=== PATIENT | male | born 2000 ===

== ENCOUNTER 2025-05-19 21:27 | Emergency (ER) | payer OTHER ==
[~2025-05-19] VITALS: Ht 177.8 cm; Wt 72.6 kg
== END 2025-05-19 22:15 | disposition home or self-care (01) ==
LOC: ER 21:27
DX: S61.241A Puncture wound with foreign body of left index finger without damage to nail, initial encounter (principal); W26.8XXA Contact with other sharp object(s), not elsewhere classified, initial encounter; W45.8XXA Other foreign body or object entering through skin, initial encounter; Z88.0 Allergy status to penicillin
CPT/HCPCS: 64450; 99282-25